=== PATIENT | male | born 1975 | race Caucasian/White ===

== ENCOUNTER 2016-10-12 15:33 | Emergency (ER) | payer MEDICAID ==
[2016-10-12 15:38] VITALS: BP 167/49; PULSE 113; RESP 16; TEMP 97.2; O2SAT 97
== END 2016-10-12 16:00 | disposition left against medical advice (07) ==
DX: Z53.21 Procedure and treatment not carried out due to patient leaving prior to being seen by health care provider (principal)

== ENCOUNTER 2017-04-09 09:58 | Emergency (ER) | payer MEDICAID ==
[2017-04-09 10:10] VITALS: TEMP 97.7
--- NOTE | 2017-04-09 10:25 | CPEKG ---
Heart Rate: 75 RR Interval: 800 QRSD Interval: 86 QT Interval: 432 QTC Interval: 483 QRS [place]: 69 T Wave [place]: 19 EKG Severity - ABNORMAL ECG - EKG Impression: ACCELERATED JUNCTIONAL RHYTHM EKG Impression: BORDERLINE PROLONGED QT INTERVAL Electronically Signed By: Brennan Granger 10-Apr-2017 21:55:13
[2017-04-09] MEDS ORDERED: ASPIRIN 81 MG CHEWABLE TAB PO ONE (10:28)
[2017-04-09] MEDS ORDERED: KETOROLAC 30 MG/1 ML SDV IVP ONE (10:33)
[2017-04-09] MEDS ORDERED: LORazepam 2 MG/ML INJ IVP ONE (10:33)
[2017-04-09 10:35] LABS: % IMMATURE GRANULYOCYTES 0.2 % (0.0-1.1); ABSOLUTE IMMATURE GRANULOCYTES 0.02 10^3/uL (0.00-0.10); ADD DIFF? NO; ADD MORPH? NO; ADD SCAN? NO; ATYPICAL LYMPHOCYTE FLAG 10 (0-99); FRAGMENT RBC FLAG 0 (0-99); HEMATOCRIT 39.6 % (40.0-51.0); LEFT SHIFT FLG 0 (0-99); LIPEMIA HEMOLYSIS FLAG 90 (0-99); MEAN CELL HEMOGLOBIN 30.4 pg (27.9-34.1); MEAN CELL HEMOGLOBIN CONCENTR. 35.4 g/dL (32.4-36.7); MEAN CELL VOLUME 85.9 fL (81.5-99.8); MEAN PLATELET VOLUME 9.8 fL (8.7-11.7); PLATELET CLUMPS FLAG 10 (0-99); PLATELET COUNT 240 10^3/uL (150-400); RED BLOOD CELL COUNT 4.61 10^6/uL (4.40-6.38); RED CELL DISTRIBUTION WIDTH 13.6 % (11.5-15.2)
[2017-04-09 10:46] LABS: ANION GAP 13 mEq/L (8-16); CALCIUM 9.4 mg/dL (8.5-10.4); CARBON DIOXIDE 22 mEq/l (22-31); CHLORIDE 104 mEq/L (97-110); CREATININE 0.7 mg/dL (0.7-1.3); GLOMERULAR FILTRATION RATE > 60; GLUCOSE 127 mg/dL (70-100); POTASSIUM 3.8 mEq/L (3.5-5.2); SODIUM 139 mEq/L (134-144)
[2017-04-09 10:57] LABS: TROPONIN I < 0.012 ng/mL (0.000-0.034)
--- NOTE | 2017-04-09 11:09 | EDPHY ---
H & P Stated Complaint: Sharp stabbing CP x 3 days that increases w/movement/breathing Time Seen by Provider: 04/09/17 10:00 HPI/ROS: CHIEF COMPLAINT: chest pain x2 days HISTORY OF PRESENT ILLNESS: 41-year-old male history of factor 5 Leiden disorder, complaining 3 days of mid sternal chest pain reproducible with inspiration, palpation. History of illicit drug use, no cocaine , no methamphetamine use. Daily cigarette user. No family history of premature coronary artery disease or sudden unexplained . No trauma or immobilization. PRIMARY CARE PROVIDER: none REVIEW OF SYSTEMS: A ten point review of systems was performed and is negative with the exception of the items mentioned in the HPI PAST MEDICAL & SURGICAL HISTORY: Factor 5 Leiden SOCIAL HISTORY:daily smoker. No cocaine or illicit drug use PHYSICAL EXAM (Prior to examination, patient consented to physical exam, hands were washed and my usual and customary physical exam procedures followed) 1) GENERAL: Well-developed, well-nourished, alert and oriented. Appears uncomfortable, anxious, tearful 2) HEAD: Normocephalic, atraumatic 3) HEENT: Pupils equal, round, reactive to light bilaterally. Sclera anicteric. 4) NECK: Full range of motion, no meningeal signs. 5) LUNGS: Clear auscultation bilaterally, no wheezes, no rhonchi, no retractions. Chest wall tender to palpation at the sternum and right costosternal border 6) HEART: Regular rate and rhythm, no murmur, no heave, no gallop. 7) ABDOMEN: No guarding, no rebound, no focal tenderness, negative McBurney's, negative Pacheco's, negative Rovsing's, negative peritoneal sign, 8) MUSCULOSKELETAL: Moving all extremities, no focal areas of tenderness, no obvious trauma. No peripheral edema or discoloration. Negative Homans no palpable cord 9) BACK: No CVA tenderness, no midline vertebral tenderness, no fluctuance, no step-off, no obvious trauma, no visual or palpable abnormality. 10) SKIN: No rash, no petechiae. 11) Psychiatric: Patient is oriented X 3, there is no agitation. DIFFERENTIAL DIAGNOSIS: In no particular order, including but not limited to myocardial ischemia, pulmonary embolus, chest wall pain, pleural inflammation and pulmonary infectious causes. - Personal History Current Tetanus Diphtheria and Acellular Pertussis (TDAP): Yes - Medical/Surgical History Hx Asthma: No Hx Chronic Respiratory Disease: No Hx Diabetes: No Hx Cardiac Disease: No Hx Renal Disease: No Hx Cirrhosis: No Hx Alcoholism: No Hx HIV/AIDS: No Hx Splenectomy or Spleen Trauma: No Other PMH: GI bleed. osteomyelitis. Factor V Leiden - Social History Smoking Status: Current every day smoker Constitutional: Initial Vital Signs Temperature (C) 36.5 C 04/09/17 10:09 Heart Rate 87 04/09/17 10:09 Respiratory Rate 18 04/09/17 10:09 Blood Pressure 137/86 H 04/09/17 10:09 O2 Sat (%) 97 04/09/17 10:09 O2 Delivery Mode Room Air Allergies/Adverse Reactions: metoclopramide HCl [From Reglan] Allergy (Severe, Verified 04/09/17 10:07) seizures ibuprofen Allergy (Mild, Verified 04/09/17 10:07) GI irritation Home Medications: Medication Instructions Recorded Hydrocodone/APAP 5/325 [[place] 1 tab PO Q6 PRN #7 tab 04/09/17 5/325 (RX)] Ibuprofen [Motrin (*)] 800 mg PO Q6 #15 tab 04/09/17 Medical Decision Making - Diagnostics Imaging Results: Imaging Impressions Chest/Thorax CTA 04/09/17 11:07 Impression: 1. No evidence of pulmonary embolus using CT protocol. 2. Normal CT chest. Findings discussed with Aurelio Ramesh PAC at 11:46 hour, 04/09/2017. Images reviewed myself ED Course/Re-evaluation: 11:07 a.m.: Patient is moderate risk for pulmonary embolus, positive D-dimer. Plan will be CT imaging, indication: evaluate possible pulmonary embolus. 12:59 p.m.: Patient was re-evaluated with serial examinations. At this time he is sleeping, appears comfortable. He still complaining of midsternal chest pain which is reproducible with palpation. We discussed more than likely musculoskeletal etiology and recommended ibuprofen . States it is a history of factor 5 Leiden, does not have primary care provider. I recommend he establish primary care and have given him appropriate resources. He feels comfortable with this discharge plan. Care of patient under supervision of secondary supervising physician Dr Dewitt with whom I discussed case . - Data Points Laboratory Results: Laboratory Results 04/09/17 10:27 04/09/17 10:27 04/09/17 04/09/17 04/09/17 10: 10: 10:27 WBC 8.95 10^3/uL 10^3/uL (3.80-9.50) RBC 4.61 10^6/uL 10^6/uL (4.40-6.38) Hgb 14.0 g/dL g/dL (13.7-17.5) Hct 39.6 % L % (40.0-51.0) MCV 85.9 fL fL (81.5-99.8) MCH 30.4 pg pg (27.9-34.1) MCHC 35.4 g/dL g/dL (32.4-36.7) RDW 13.6 % % (11.5-15.2) Plt Count 240 10^3/uL 10^3/uL (150-400) MPV 9.8 fL fL (8.7-11.7) Neut % (Auto) 77.7 % H % (39.3-74.2) Lymph % (Auto) 9.9 % L % (15.0-45.0) [place] % (Auto) 11.4 % % (4.5-13.0) Eos % (Auto) 0.4 % L % (0.6-7.6) Baso % (Auto) 0.4 % % (0.3-1.7) Nucleat RBC Rel Count 0.0 % % (0.0-0.2) Absolute Neuts (auto) 6.94 10^3/uL H 10^3/uL (1.70-6.50) Absolute Lymphs (auto) 0.89 10^3/uL L 10^3/uL (1.00-3.00) Absolute Monos (auto) 1.02 10^3/uL H 10^3/uL (0.30-0.80) Absolute Eos (auto) 0.04 10^3/uL 10^3/uL (0.03-0.40) Absolute Basos (auto) 0.04 10^3/uL 10^3/uL (0.02-0.10) Absolute Nucleated RBC 0.00 10^3/uL 10^3/uL (0-0.01) Immature Gran % 0.2 % % (0.0-1.1) Immature Gran # 0.02 10^3/uL 10^3/uL (0.00-0.10) D-Dimer 1.16 ug/mLFEU H ug/mLFEU (0.00-0.50) Sodium 139 mEq/L mEq/L (134-144) Potassium 3.8 mEq/L mEq/L (3.5-5.2) Chloride 104 mEq/L mEq/L (97-110) Carbon Dioxide 22 mEq/l mEq/l (22-31) Anion Gap 13 mEq/L mEq/L (8-16) BUN 8 mg/dL mg/dL (7-23) Creatinine 0.7 mg/dL mg/dL (0.7-1.3) Estimated GFR > 60 Glucose 127 mg/dL H mg/dL (70-100) Calcium 9.4 mg/dL mg/dL (8.5-10.4) Troponin I < 0.012 ng/mL ng/mL (0.000-0.034) Medications Given: Discontinued Medications Aspirin (Aspirin) 324 mg PO EDNOW ONE Stop: 04/09/17 10:29 Last Admin: 04/09/17 10:44 Dose: 324 mg Ketorolac Tromethamine (Toradol) 30 mg IVP EDNOW ONE Stop: 04/09/17 10:34 Last Admin: 04/09/17 10:45 Dose: 30 mg Lorazepam (Ativan Injection) 1 mg IVP EDNOW ONE Stop: 04/09/17 10:34 Last Admin: 04/09/17 10:45 Dose: 1 mg Morphine Sulfate (Morphine) 4 mg IVP EDNOW ONE Stop: 04/09/17 10:34 Last Admin: 04/09/17 10:45 Dose: 4 mg Ondansetron HCl (Zofran Odt) 4 mg PO EDNOW ONE Stop: 04/09/17 12:51 Last Admin: 04/09/17 12:51 Dose: 4 mg Departure - Departure Disposition: Home, Routine, Self-Care Clinical Impression: Chest wall pain Condition: Good Instructions: Chest Wall Pain (ED) Additional Instructions: Seek medical attention if you develop new or worsening chest pain, if you develop new or worsening shortness of breath, or any other symptoms that concern you. Referrals: [facility],. [Clinic] - 2-3 days, call for appt. Prescriptions: Hydrocodone/APAP 5/325 [[place] 5/325 (RX)] 1 tab PO Q6 PRN #7 tab PRN Reason: Pain, Severe Ibuprofen [Motrin (*)] 800 mg PO Q6 #15 tab
[2017-04-09] MEDS ORDERED: IOPAMIDOL (ISOVUE 370) 100 ML BTL IV ONE (11:11)
[2017-04-09] MEDS ORDERED: ONDANSETRON DISINTEGRATING 4 MG TAB ONE (12:49)
[2017-04-09] MEDS ORDERED: ONDANSETRON DISINTEGRATING 4 MG TAB PO ONE (12:50)
[2017-04-09 12:53] VITALS: BP 132/80; PULSE 87; RESP 16; O2SAT 97
== END 2017-04-09 12:52 | disposition home or self-care (01) ==
DX: R07.89 Other chest pain (principal); F17.200 Nicotine dependence, unspecified, uncomplicated
CPT/HCPCS: 96374; J1885; J2060; Q9967

== ENCOUNTER 2017-10-23 03:40 | Emergency (ER) | payer MEDICAID ==
[2017-10-23 03:44] VITALS: BP 128/64
--- NOTE | 2017-10-23 03:56 | EDPHY ---
H & P Stated Complaint: med clear Time Seen by Provider: 10/23/17 03:56 HPI/ROS: HPI CHIEF COMPLAINT: Medical clearance for penitentiary. HISTORY OF PRESENT ILLNESS: Patient is a 42-year-old male, polysubstance abuse and homelessness, presents emergency room for medical clearance for penitentiary. He states he did heroin 6 hr ago. Also he smoked marijuana. He has no focal complaints. He is thirsty in requesting something to drink. His vital signs are stable. He denies any chest pain or shortness of breath, denies vomiting. Denies abdominal pain. Past Medical History: Polysubstance abuse Past Surgical History: No recent surgery Social History: Homelessness with polysubstance abuse, history of IV heroin 6 hr ago. Smokes marijuana recently. Family History: Noncontributory ROS REVIEW OF SYSTEMS: A comprehensive 10 point review of systems is otherwise negative aside from elements mentioned in the history of present illness. Exam Constitutional appears nontoxic no acute distress, triage nursing summary reviewed, vital signs reviewed, awake/alert. Eyes normal conjunctivae and sclera, EOMI, PERRLA. HENT normal inspection, atraumatic, moist mucus membranes, no epistaxis, neck supple/ no meningismus, no raccoon eyes. Respiratory clear to auscultation bilaterally, normal breath sounds, no respiratory distress, no wheezing. Cardiovascular rate normal, regular rhythm, no murmur, no edema, distal pulses normal. Gastrointestinal soft, non-tender, no rebound, no guarding, normal bowel sounds, no distension, no pulsatile mass. Genitourinary no CVA tenderness. Musculoskeletal no midline vertebral tenderness, full range of motion, no calf swelling, no tenderness of extremities, no meningismus, good pulses, neurovascularly intact. Skin pink, warm, & dry, no rash, skin atraumatic. Neurologic awake, alert and oriented x 3, AAOx3, moves all 4 extremities equally, motor intact, sensory intact, CN II-XII intact, normal cerebellar, normal vision, normal speech. Psychiatric normal mood/affect. Heme/Lymph/Immune no lymphadenopathy. Differential Diagnosis: Includes but is not limited to in a particular order polysubstance abuse, homelessness, IV drug use, IV heroin use, marijuana use Medical Decision Making: This patient has normal vital signs he last used heroin 6 hr ago in marijuana recently. He is here for medical clearance for penitentiary. He has no complaints. He otherwise appears well nontoxic. He is not tremulous he is not agitated he is, cooperative. He answers my questions appropriately. Patient be medically cleared for penitentiary. No evidence of opiate withdrawal at this time. And no evidence of opioid overdose. Source: Patient, Police - Personal History Current Tetanus Diphtheria and Acellular Pertussis (TDAP): Yes - Medical/Surgical History Hx Asthma: No Hx Chronic Respiratory Disease: No Hx Diabetes: No Hx Cardiac Disease: No Hx Renal Disease: No Hx Cirrhosis: No Hx Alcoholism: No Hx HIV/AIDS: No Hx Splenectomy or Spleen Trauma: No Other PMH: GI bleed. osteomyelitis. Factor V Leiden - Social History Smoking Status: Current every day smoker Constitutional: Initial Vital Signs Temperature (C) 35.9 C L 10/23/17 03:42 Heart Rate 100 10/23/17 03:42 Respiratory Rate 16 10/23/17 03:42 Blood Pressure 128/64 H 10/23/17 03:42 O2 Sat (%) 92 10/23/17 03:42 O2 Delivery Mode Room Air Allergies/Adverse Reactions: metoclopramide HCl [From Reglan] Allergy (Severe, Verified 10/23/17 03:41) seizures ibuprofen Allergy (Mild, Verified 10/23/17 03:41) GI irritation Home Medications: Medication Instructions Recorded Percocet 10-325 mg Tablet 10/23/17 Departure - Departure Disposition: Home, Routine, Self-Care Clinical Impression: Polysubstance abuse Condition: Good Instructions: Polysubstance Abuse (ED) Additional Instructions: 1. Medically cleared for penitentiary. Referrals: Patient,NotPresent [Primary Care Provider] - As per Instructions
== END 2017-10-23 04:13 | disposition home or self-care (01) ==
LOC: EEVIPCON 03:40
DX: F19.10 Other psychoactive substance abuse, uncomplicated (principal); F17.200 Nicotine dependence, unspecified, uncomplicated

== ENCOUNTER 2018-03-03 23:16 | Emergency (ER) | payer MEDICAID ==
--- NOTE | 2018-03-03 23:40 | EDPHY ---
H & P Time Seen by Provider: 03/03/18 23:30 HPI/ROS: CHIEF COMPLAINT: Patient is here for medical clearance for incarceration HISTORY OF PRESENT ILLNESS: Patient reports productive cough and chest pain for the last 3 weeks associated with intermittent fever. Denies any history of pulmonary embolism or hemoptysis. Also reports mild shortness of breath. Has no history of asthma or COPD. Denies any significant cardiopulmonary disease including no history of NV. REVIEW OF SYSTEMS: Constitutional: No fever, no chills. Eyes: No discharge. ENT: No sore throat. Cardiovascular: + chest pain, no palpitations. Respiratory: + cough, no shortness of breath. Gastrointestinal: No abdominal pain, no vomiting. Genitourinary: No hematuria. Musculoskeletal: No back pain. Skin: No rashes. Neurological: No headache. Smoking Status: Current every day smoker Physical Exam: General Appearance: Alert and no distress. Eyes: Pupils equal and round no injection. Respiratory: Chest is nontender, lungs are clear to auscultation. Cardiac: regular rate and rhythm. Gastrointestinal: Abdomen is soft and nontender, no masses, bowel sounds normal. Musculoskeletal: Neck is supple and nontender. Extremities have full range of motion and are nontender. Skin: No rashes or lesions. Constitutional: Initial Vital Signs Temperature (C) 36.9 C 03/03/18 23:33 Heart Rate 110 H 03/03/18 23:33 Respiratory Rate 18 03/03/18 23:33 Blood Pressure 143/93 H 03/03/18 23:33 O2 Sat (%) 94 03/03/18 23:33 O2 Delivery Mode Room Air Allergies/Adverse Reactions: metoclopramide HCl [From Reglan] Allergy (Severe, Verified 03/03/18 23:31) seizures ibuprofen Allergy (Mild, Verified 03/03/18 23:31) GI irritation Home Medications: Medication Instructions Recorded Percocet 10-325 mg Tablet 10/23/17 Amoxicillin 03/03/18 Heparin 03/03/18 Medical Decision Making ED Course/Re-evaluation: Patient here with cough and shortness of breath the last 3 weeks. Chest x-ray reveals no focal infiltrate or effusion. EKG shows sinus tachycardia without any ischemic changes. Troponin is 0.00. Have low suspicion for pulmonary embolism given lack hypoxia and no unilateral calf swelling or risk factors for pulmonary embolism. - Data Points Laboratory Results: 03/03/18 23:51 POC Troponin I 0.00 ng/mL ng/mL (0.00-0.08) Point of Care Test Results: Chemistry 03/03/18 23:51 POC Troponin I 0.00 ng/mL ng/mL (0.00-0.08) Departure - Departure Disposition: Home, Routine, Self-Care Clinical Impression: Cough, Chest pain Condition: Good Instructions: Chest Pain (ED) Additional Instructions: The patient is medically cleared for incarceration. Please return to the emergency room if he have worsening or chest pain, trouble breathing or other worrisome symptoms Referrals: NONE *PRIMARY CARE P,. [Primary Care Provider] - As per Instructions [facility],. [Clinic] - As per Instructions
[2018-03-04 00:34] VITALS: BP 138/90
--- NOTE | 2018-03-04 05:05 | CPEKG ---
Test Reason : OPEN Blood Pressure : / mmHG Vent. Rate : 102 BPM Atrial Rate : 101 BPM P-R Int : 107 ms QRS Dur : 089 ms QT Int : 337 ms P-R-T Axes : 075 053 035 degrees QTc Int : 439 ms Sinus tachycardia Consider left ventricular hypertrophy Confirmed by Aj Fernandes ([id number]) on 03/04/2018 5:05:01 AM Referred By: Confirmed By:Aj Fernandes
== END 2018-03-04 00:33 ==
LOC: EEVIPCON 23:16
DX: R05 Cough (principal); R07.9 Chest pain, unspecified; F17.200 Nicotine dependence, unspecified, uncomplicated
CPT/HCPCS: 84484-PO

== ENCOUNTER 2018-08-16 01:48 | Emergency (ER) | payer MEDICAID ==
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
[2018-08-16] MEDS ORDERED: NS 1,000 ML IV ONE (01:58)
[2018-08-16] MEDS ORDERED: HALOPERIDOL LACT 5 MG/ML INJ IVP ONE (01:59)
[2018-08-16] MEDS ORDERED: LORazepam 2 MG/ML INJ ONE (02:14)
[2018-08-16] MEDS ORDERED: LORazepam 2 MG/ML INJ IVP ONE (02:16)
[2018-08-16 02:20] LABS: PLATELET COUNT 222 10^3/uL (150-400)
--- NOTE | 2018-08-16 15:44 | ASMTCMCOM ---
CM Note CM Note Notes: This CM met with patient's girlfriend Marizol at the bedside to offer emotional support and resources while patient was beginning to wake up and prepare for discharge. Chart reviewed. Marizol explains that she and patient are living with her grandfather in [place] while she is trying to "get her act together and get a job". Marizol admits to a history of substance abuse and tells me that she would like to work with a counselor again. This CM spoke with Marizol about resources for drug and alcohol withdrawal and treatment that are available and accept Medicaid, as well as information about withdrawal management, the crisis center, and [facility]. Contact information provided for [facility], including the [facility], and P. I have encouraged Marizol to discuss further with patient and the importance of them both to seek PCP and assistance with substance abuse. Marizol tells me that she thinks they just need some counseling and tells me that they will follow up with [facility]. CM available prn for further assessment and resources if desired per patient when he is alert Date Signed: 08/16/2018 03:43 PM Electronically Signed By:Marybel Kate RN
[2018-08-16 15:54] VITALS: BP 98/45
== END 2018-08-16 16:48 | disposition home or self-care (01) ==
LOC: EDUNIT#
DX: R45.1 Restlessness and agitation (principal); F15.10 Other stimulant abuse, uncomplicated; M54.5 Low back pain; G89.29 Other chronic pain
CPT/HCPCS: 80305; 96374; G0480; J1630; J2060

== ENCOUNTER 2018-09-28 17:03 | Emergency (ER) | payer MEDICAID, OTHER ==
--- NOTE | 2018-09-28 17:18 | EDPHY ---
H & P Time Seen by Provider: 09/28/18 17:09 HPI/ROS: HPI: This is a 43-year-old male who presents with Chief Complaint: Right ankle pain Location: Right ankle Quality: Pain, injury Duration: 4 hr prior to arrival Signs and Symptoms: No bleeding, no radiation, no numbness, no weakness, no tingling, no incontinence, + decreased range of motion, no swelling, + pain, no fever, no skin color changes Timing: Acute on chronic Severity: 01/07 Context: Patient presents with accidental injury of his right ankle where he describes he hit an object while walking approximately 4-5 hours prior to arrival. He reports that he hit the area of biopsy that occurred 1 month ago and sutures are still in place. 2 years ago he was diagnosed with osteomyelitis in his right ankle and since that time his ankle has been "unstable." One month ago, the area was biopsied at [facility] and it was "negative for infection." He advises that it was recommended that he have a fusion performed at [facility] unknown orthopedic provider. He missed his follow-up appointment with [facility] on 09/17/2018. Since that time, he became homeless and has been living in the [facility] for the last 1 month. He reports he has an old, unreliable car that is unable to travel to [place]. Denies fevers, radiation, paresthesias, decreased range of motion. He has an appointment with [facility] tomorrow in [place] at 11:00 a.m. Significant other, Marizlo, at bedside gives most of the history. Modifying Factors: Has not applied ice or taking any biks-air-wdiupnh pain medications Comment: ROS: A comprehensive 10 system review of systems is otherwise negative aside from elements mentioned in the history of present illness. MEDICAL/SURGICAL/SOCIAL HISTORY: Medical history: GI bleed, right ankle osteomyelitis, Factor V Leiden Surgical history: Denies Social history: Alcohol, tobacco, methamphetamine, heroin use. Homeless. CONSTITUTIONAL: Tearful, appears uncomfortable middle-aged white male, significant other at bedside, smells heavily of alcohol, awake and alert, no obvious distress HEENT: Atraumatic and normocephalic. Pinpoint pupils bilaterally. NECK: supple, no midline tenderness, flexion 45 degrees, extension 45 degrees, right and left lateral flexion 45 degrees. No meningismus. Cardiovascular: Normal S1/S2, regular rate, regular rhythm, without murmur rub or gallop. PULMONARY/CHEST: Symmetrical and nontender. Clear to auscultation bilaterally. Good air movement. No accessory muscle usage. ABDOMEN: Soft, nondistended, nontender. EXTREMITIES: 2/2 pulses, strength 5/5, right ankle medial aspect shows 2 in well-healed remote incision with sutures in place; no surrounding erythema, induration, fluctuance, drainage. Right Ankle: Plantar flexion to 50, dorsiflexion to 20. Foot inversion to 35 degree. No tenderness/swelling Anterior talofibular ligament. No tenderness/swelling Calcaneofibular ligament , no tenderness/swelling posterior talofibular ligament, no tenderness/swelling posterior inferior tibiofibular ligament. Achilles tendon intact. DIP/PIP/MCP flexion/extension intact with good light touch sensation. no deformities, no clubbing, no cyanosis, no edema. NEUROLOGICAL: no focal neuro deficits. GCS 15. Light touch sensation intact. SKIN: Warm and dry, multiple tattoos covering body. no rash. Good capillary refill. Source: Patient Exam Limitations: No limitations - Medical/Surgical History Hx Asthma: No Hx Chronic Respiratory Disease: No Hx Diabetes: No Hx Cardiac Disease: No Hx Renal Disease: No Hx Cirrhosis: No Hx Alcoholism: No Hx HIV/AIDS: No Hx Splenectomy or Spleen Trauma: No Other PMH: GI bleed. osteomyelitis. Factor V Leiden - Social History Smoking Status: Current every day smoker Constitutional: Initial Vital Signs Temperature (C) 34.5 C L 09/28/18 17:13 Heart Rate 96 09/28/18 17:13 Respiratory Rate 18 09/28/18 17:13 Blood Pressure 127/97 H 09/28/18 17:13 O2 Sat (%) 97 09/28/18 17:13 O2 Delivery Mode Room Air Allergies/Adverse Reactions: metoclopramide HCl [From Reglan] Allergy (Severe, Verified 08/16/18 01:59) seizures ibuprofen Allergy (Mild, Verified 08/16/18 01:59) GI irritation Home Medications: Medication Instructions Recorded Percocet 10-325 mg Tablet 10/23/17 Amoxicillin 03/03/18 Heparin 03/03/18 Medical Decision Making - Diagnostics Imaging Results: Imaging Impressions Ankle X-Ray 09/28/18 17:09 Impression: No acute fracture. Findings discussed with Emergency Department physician cement tester assistant, Grazyna Rosario at 09/28/2018 17:31. Procedures: Procedure: Splint placement. A right Moncada boot was applied and crutches were given. After application of the splint I returned and re-examined the patient. The splint was adequately immobilizing the joint and distal to the splint the patient's circulation and sensation was intact. ED Course/Re-evaluation: Vital signs reviewed and stable upon arrival. Right ankle x-ray ordered and my read shows no fracture, dislocation Patient has no signs of sepsis. Placed in right Moncada boot, crutches with [facility] orthopedic follow-up. Case management consult 173: Called by radiologist, Dr. Snyder, who reports no acute fracture/ dislocation complete loss of tibiotalar joint space and erosions on the tibia and talar dome concerning for osteomyelitis changes 1757: Marybel, has arranged for Medicaid cab to [facility] this Wednesday for follow-up appointment in the clinic. He is nonseptic and nontoxic in appearance and feel that it is best for him to continue care at [facility]. He has transportation and appointment tomorrow in [place] at the [facility]. Marizol, significant other, at bedside reports that she will make sure patient gets to scheduled appointments. No signs of neurovascular compromise/tenting of skin/compartment syndrome/ extremities and joints examined above and below area of concern and are neurovascularly intact. This patient was seen under the supervision of my secondary supervising physician. I evaluated and cared for this patient with attending. Differential Diagnosis: Ankle injury differential diagnosis includes but is not limited to tibia fracture, fibula fracture, metatarsal fracture, LisFranc fracture, achilles tendon rupture, sprain. Departure - Departure Disposition: Home, Routine, Self-Care Clinical Impression: Chronic osteomyelitis of right ankle, Opiate abuse, continuous Condition: Good Instructions: Crutch Instructions (ED), Opioid Use Disorder (ED) Additional Instructions: Wear the walking boot while out of bed until seen by [facility]. Use crutches to aid ambulation. Start with toe-touch weight-bearing status. Take Tylenol 650 mg every 4 hours and/or Ibuprofen 600 mg every 8 hours with food as needed for pain. Apply ice for 30 minutes at a time; 2-3 times per day for the next 1-2 days. Follow up with [facility] this week. Keep follow-up appointment with [facility] tomorrow in [place] at 11:00 a.m.. Called Medicaid cab to arrange transportation. Referrals: OTHER HEALTH CARE DC,. [[facility]] - As per Instructions ([facility])
[2018-09-28 18:26] VITALS: BP 135/87
--- NOTE | 2018-09-29 10:37 | ASMTCMCOM ---
CM Note CM Note Notes: Case Management late entry: This CM met with patient and his significant other, Marizol last evening during his ER visit. See ED report for details. Patient is known to me from a prior ER visit on 08/16/18 and CM note was entered at that time regarding resources provided. Patient informed this CM (last evening) that he missed a follow up appointment at [facility] on 09/17 to have stitches removed from his ankle s/p bone biopsy. Patient explains that it is difficult for him to get down to [place] due to their living up in [place] and not having transportation.Patient does have Medicaid and is aware of his ability to schedule a Medicaid cab for scheduled appointments. Patient is unable to tell me who his follow up appointment is with at this time. I encouraged patient to get his appointment rescheduled JEANNINE and offered to contact DH in the morning if patient could provide me with more details as to the physician/clinic, location of his missed appointment. Patient stated that he did not have this information with him and agreed with plan that I would contact patient in the morning, confirm who his appointment was with, and contact office directly in an attempt to reschedule his follow up. Patient provided me with a cell phone number ( that I could reach him at in the morning. Patient appeared to be under the influence as evidenced by pinpoint pupils, slurred speech, and mlild muscle "twitching". He was initially quite defensive when I asked if he had followed up with any resources from his previous visit but eventually told me that he "was sick of living like this" and stated that he had an appointment at the "[facility]" in [place] in the tomorrow morning at 1100. I praised ansd encouraged patient for taking this step and shared my hope that he and Marizol would continue to pursue help in seeking recovery This CM attempted to reach patient this morning at the above number provided (no VM available) as well as the phone number listed in his chart . This phone number was answered by a man who asked who I was and then told me that I have the wrong phone number. CM available prn for further needs Date Signed: 09/29/2018 10:36 AM Electronically Signed By:Marybel Kate RN
== END 2018-09-28 18:25 | disposition home or self-care (01) ==
DX: M86.671 Other chronic osteomyelitis, right ankle and foot (principal); F11.10 Opioid abuse, uncomplicated
CPT/HCPCS: L4386

== ENCOUNTER 2018-11-10 19:46 | Emergency (ER) | payer MEDICAID | END 2018-11-10 20:36 | disposition home or self-care (01) ==